=== PATIENT | male | born 1995 | race Caucasian/White ===

== ENCOUNTER 2016-12-30 10:15 | Emergency (ER) | payer SELFPAY ==
[2016-12-30 10:31] VITALS: BP 105/58
[2016-12-30] MEDS ORDERED: Ibuprofen TAB* 400 MG PO ONE (10:46)
[2016-12-30] MEDS ORDERED: Tetan/Diph/Pertus SYR(Tdap)* 0.5 ML SYR(BOOSTRIX) use SYR IM ONE (10:46)
--- NOTE | 2016-12-30 11:30 | RAD ---
Indication: Calcaneus pain. 2 views of the calcaneus demonstrates no fracture. No other bone or joint abnormality is noted. IMPRESSION: No fracture of the calcaneus is noted.
--- NOTE | 2016-12-30 11:33 | RAD ---
Indication: Left lower leg pain. 2 views of left lower leg demonstrates no fracture. No other bone or joint abnormality is identified. IMPRESSION: NO FRACTURE OF THE LEFT LOWER LEG IS NOTED.
--- NOTE | 2016-12-30 11:44 | UC ---
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 ABRASIONS TO LEG AND PAIN AND SWELLING IN HEEL OF LEFT FOOT. NO KNEE PAIN. NO HEAD TRAUMA. NO NECK PAIN. NO LOC. - History of Current Complaint Chief Complaint: UCLowerExtremity Stated Complaint: LEFT LOWER LEG/ANKLE INJURY WC Time Seen by Provider: 12/30/16 10:18 Hx Obtained From: Patient Onset/Duration: Sudden Onset, Lasting Hours, Still Present Severity Initially: Moderate Severity Currently: Moderate Aggravating Factor(s): Standing, Ambulation Alleviating Factor(s): Elevation, Ice Able to Bear Weight: Yes - WITH PAIN IN LEFT HEEL Related History: Occupational Injury - Risk Factors Gout Risk Factors: Negative DVT Risk Factors: Negative Septic Arthritis Risk Factor: Negative - Allergies/Home Medications Allergies/Adverse Reactions: Allergies Allergy/AdvReac Type Severity Reaction Status Date / Time No Known Allergies Allergy Verified 12/30/16 10:25 Home Medications: Home Medications NK [No Home Medications Reported] 12/30/16 [History Confirmed 12/30/16] PMH/Surg Hx/FS Hx/Imm Hx Previously Healthy: Yes - Surgical History Surgical History: None - Family History Known Family History: Negative: Blood Disorder - Social History Occupation: Employed Full-time Lives: With Family Alcohol Use: Daily Substance Use Type: None Smoking Status (MU): Heavy Every Day Tobacco Smoker Type: Cigarettes Amount Used/How Often: 1 PPD Household Exposure Type: Cigarettes Cessation Counseling: Patient Advised to Stop - Immunization History Most Recent Tetanus Shot: UNSURE Review of Systems Constitutional: Negative Skin: Rash - ABRASIONS LEFT MEDIAL LEG Eyes: Negative ENT: Negative Respiratory: Negative Cardiovascular: Negative Gastrointestinal: Negative Genitourinary: Negative Motor: Negative Neurovascular: Negative Musculoskeletal: Arthralgia, Edema - LEFT HEEL, Myalgia Neurological: Negative Psychological: Negative All Other Systems Reviewed And Are Negative: Yes Physical Exam Triage Information Reviewed: Yes Appearance: Well-Appearing, Well-Nourished, Pain Distress - MILD Vital Signs: Initial Vital Signs Temp 98.3 F 12/30/16 10:25 Pulse 78 12/30/16 10:25 Resp 20 12/30/16 10:25 BP 105/58 12/30/16 10:25 Pulse Ox 100 12/30/16 10:25 Vital Signs Reviewed: Yes Eye Exam: Normal ENT Exam: Normal Dental Exam: Normal Neck exam: Normal Neck: Positive: Supple, Nontender, No Lymphadenopathy. Negative: Nuchal Rigidity, Tenderness @ Respiratory Exam: Normal Respiratory: Positive: Chest non-tender, Lungs clear, Normal breath sounds, No respiratory distress, No accessory muscle use Cardiovascular Exam: Normal Cardiovascular: Positive: RRR, No Murmur, Pulses Normal Abdominal Exam: Normal Musculoskeletal Exam: Normal - HEEL Musculoskeletal: Positive: Strength Intact, ROM Intact, Edema @ Neurological Exam: Normal Psychological Exam: Normal Skin: Positive: rashes - ABRASION LEFT MEDIAL LEG Lower Extremity Course/Dx - Differential Dx/Diagnosis Differential Diagnosis/HQI/PQRI: Contusion, Fracture (Closed), Sprain, Strain Provider Diagnoses: ABRASIONS LEFT MEDIAL LEG; LEFT HEEL CONTUSION; LEFT FOOT SPRAIN Discharge - Discharge Plan Condition: Stable Disposition: HOME Patient Education Materials: Foot Contusion (ED), Foot Sprain (ED), Abrasion ( ED) Forms: *Work Release Referrals: [facility] [Outside] [facility] [Outside] Tremaine Malhotra MD [Medical Doctor] - No Primary Care Phys,NOPCP [Primary Care Provider] -
== END 2016-12-30 11:47 | disposition home or self-care (01) ==
LOC: UCCORT 10:15
DX: S93.602A Unspecified sprain of left foot, initial encounter (principal); S90.32XA Contusion of left foot, initial encounter; S80.812A Abrasion, left lower leg, initial encounter; W22.09XA Striking against other stationary object, initial encounter; F17.210 Nicotine dependence, cigarettes, uncomplicated
CPT/HCPCS: 90471; 90715; 99203; A9270-GY; G0463